=== PATIENT | male | born 2000 | race Two or more races ===

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

== ENCOUNTER 2021-04-11 15:28 | Emergency (ER) | payer OTHER, SELFPAY ==
[2021-04-11 16:16] VITALS: BP 137/77; PULSE 68; RESP 18; TEMP 36.4; O2SAT 100
--- NOTE | 2021-04-11 16:59 | ED.URI ---
HPI - URI/Sore Throat General Chief Complaint: Upper Respiratory Infection Stated Complaint: Runny Nose,Sore Throat Time Seen by Provider: 04/11/21 16:55 Source: patient, RN notes reviewed and old records reviewed Mode of arrival: ambulatory Limitations: no limitations History of Present Illness HPI Narrative: 21-year-old male presents to the [facility] with complaints of a runny nose and sore throat, states I am here for a Flu test. States that he has had a runny nose for couple of days. 2 of his buddies he hung out with a couple of days ago tested positive for the flu this morning. No treatment prior to arrival had his gallbladder removed a year ago tonsils and adenoids removed as a child. Related Data Home Medications Medication Instructions Recorded Confirmed desmopressin mg 09/27/19 famotidine 09/27/19 fluoxetine mg 09/27/19 gabapentin 09/27/19 hydroxyzine HCl 09/27/19 montelukast mg 09/27/19 topiramate 09/27/19 ziprasidone HCl 09/27/19 Allergies Allergy/AdvReac Type Severity Reaction Status Date / Time codeine Allergy Unknown Agitated Verified 09/27/19 04:32 Review of Systems Review of Systems: All systems reviewed & are unremarkable except as noted in HPI and below Constitutional: Constitutional: Reports no additional constitutional complaints, Denies chills and Denies fever(s) Eyes: Eyes: Reports no additional eye complaints, Denies change in vision and Denies photophobia ENT: Reports as per HPI Comments: Rhinorrhea Cardiovascular: Cardiovascular: Reports no additional cardiovascular complaints and Denies chest pain Respiratory: Respiratory: Reports no additional respiratory complaints, Denies chest congestion, Denies cough, Denies dyspnea and Denies wheezing Gastrointestinal: Gastrointestinal: Reports no additional gastrointestinal complaints, Denies abdominal pain, Denies diarrhea, Denies nausea and Denies vomiting Musculoskeletal: Musculoskeletal: Reports no additional musculoskeletal complaints Integumentary/Breasts: Skin/Breast: Reports system reviewed and no additional complaints, except as docu Neurologic: Reports system reviewed and no additional complaints, except as documented Psychiatric: Psychiatric: Reports no additional psychiatric complaints Allergic/Immunologic: Allergic/Immunologic: Reports no additional allergic/immunologic complaints PMFSH Past Medical History Medical History (Updated 04/11/21 @ 18:14 by Ana Nunes) GERD (gastroesophageal reflux disease) Symptomatic cholelithiasis Surgical History Surgical History (Updated 04/11/21 @ 17:08 by Ana Nunes) History of tonsillectomy Hx of cholecystectomy S/P orchiopexy Social History Social History Smoking status: Never smoker Alcohol intake: never Substance use: current Substance use type: marijuana Gender identity (if verbalized by the patient): Male Comments At the time of my signature, I reviewed and agree with the nursing past medical, surgical, social, and family history. There is no relevant family history pertinent to the patient complaint. Exam Const: General: healthy appearing, no acute distress and alert Nutritional Appearance: well nourished and obese Orientation/consciousness: patient oriented x3 Limitations: no limitations HENMT: Head: normal to inspection Ears: external ears normal, TM's normal bilaterally and EAC's normal General nose exam: Normal external nose present, Normal nasal mucous membranes and turbinates present and No nasal discharge present Face and sinus: normal facial exam Mouth: Yes Normal oral and palatal mucosa present Teeth and gingiva: dentition normal Throat: posterior oropharynx normal, uvula midline, posterior oropharynx abnormal and tonsils absent Eyes: Conjunctivae: conjunctivae normal Pupils: Equal, round and reactive pupils present Neck: Neck: normal visual inspection, no lymphadenopathy
== END 2021-04-11 17:15 | disposition home or self-care (01) ==
PROVIDERS: Emergency Provider Nurse Practitioner; PCP Family Medicine
DX: J06.9 Acute upper respiratory infection, unspecified (principal); K21.9 Gastro-esophageal reflux disease without esophagitis
CPT/HCPCS: 87081; 87804; 87880; 99213; G0463

== ENCOUNTER 2024-12-03 16:13 | Emergency (ER) | payer OTHER, SELFPAY ==
--- OUTSIDE RECORDS SUMMARY | 2024-08-11 04:09 | XMS_ITS | Continuity of Care Document ---
Author Organization [facility] Address [address] [place] [address] [place] [address] Phone Care Team Providers Care Geophysical Party Chief Name Role Phone Agus Rodriguez MD Unavailable Unavailable Allergies, Adverse Reactions, Alerts Substance Reaction Status Criticality codeine Physical aggression(severe) Active No Information Medications Medication Instructions Dosage Effective Dates (start - stop) Status Comments omeprazole 20 mg capsule,delayed release take 1 capsule by oral route every day before a meal as needed 20 MG - Active PRN for GERD albuterol sulfate HFA 90 mcg/actuation aerosol inhaler inhale 1 puff by inhalation route every 4 - 6 hours as needed as needed 1 puff - Active PRN for sob hydrocortisone 2.5 % topical cream apply by topical route 3 times every day to the affected area(s) Not Available - Active desmopressin 0.2 mg tablet take 3 tablet by oral route every day bedtime - Active Neurontin 600 mg tablet take 1 tablet by oral route every day at bedtime - Active avoid driving or operate machines Geodon 80 mg capsule take 2 capsule by oral route every day with food 160 MG - Active oxcarbazepine 300 mg tablet 1 pill am, 2 at noon and 2 at bedtime - Active Prozac 40 mg capsule take 1 capsule by oral route every day in the morning - Active Procedures Procedure Date OFFICE/OUTPATIENT VISIT, EST OFFICE/OUTPATIENT VISIT, EST OFFICE/OUTPATIENT VISIT, EST OFFICE/OUTPATIENT VISIT, EST PREV VISIT, NEW, AGE 18-39 OFFICE/OUTPATIENT VISIT, [facility] Advance Directives Directive Yes / No Effective Date File Name No Information Encounters Encounter Description Practice Location Reason(s) For Visit Diagnoses Date Provider Providers Copied on Encounter [facility], [address], [place], [place], [id number], [place] tel:[phone] [facility] No Information 5 Michael Bermudez [address], [place], [place], [address] , [place]. tel:[phone] [facility], [address], [place], [place], [address], [place] tel:[phone] [facility] No Information 5 Michael Bermudez [address], [place], [place], [address] , [place]. tel:[phone] OFFICE/OUTPA TIENT VISIT, [facility], [address], [place], [place], [address], [place] tel:[phone] [facility] hemorrhoid 1 (chief complaint) nausea1 (chief complaint) leukocytos is1 (chief complaint) proteinuri a1 (chief complaint) GERD1 (chief complaint) LeukocytosisProtein uriaHemorrhoidGastr oenteritisGERD w/o esophagitis 5 Michael Bermudez [address], [address], [place], [place], [address] , [place]. tel:[phone] OFFICE/OUTPA TIENT VISIT, [facility], [address], [place], [place], [address], [place] tel:[phone] [facility] iron1 (chief complaint) leuko (chief complaint) asthma1 (chief complaint) Iron deficiency anemiaMild intermittent asthma, uncomplicatedLeukoc ytosis Mar- 4 Michael Bermudez [address], [place], [place], [address] , [place]. tel:[phone] OFFICE/OUTPA TIENT VISIT, [facility], [address], [place], [place], [id number], tel:[phone] [facility] Medicine GERD1 (chief complaint) iron1 (chief complaint) RLS (chief complaint) nocturia1 (chief complaint) proteinuri a1 (chief complaint) Iron deficiency anemiaGERD w/o esophagitisProteinu riaRestless legs syndromeNocturnal enuresis 4 Michael Bermudez [address], [place], [place], [address] , [place]. tel:[phone] OFFICE/OUTPA TIENT VISIT, EST [facility], [address], [place], [place], [address], tel:[phone] [facility] iron1 (chief complaint) enuresis1 (chief complaint) astma1 (chief complaint) GERD1 (chief complaint) Iron deficiency anemiaPrimary insomniaRestless legs syndromeMixed irritable bowel syndromeNocturnal enuresisGERD w/o esophagitisMild intermittent asthma, uncomplicated 4 Michael Bermudez [address], [place], [place], [address] , [place]. tel:[phone] PREV VISIT, NEW, AGE 18-39 [facility], [address], [place], [place], [address], [place] tel:[phone] [facility] physical (chief complaint) Encounter for general adult medical exam w abnormal findingsIron deficiency anemiaGeneralized Anxiety DisorderNocturnal enuresisPrimary insomniaRestless legs syndromeGERD w/o esophagitisMixed irritable bowel syndrome 4 Michael Bermudez [address], [place], [place], [address] , [place]. tel:[phone] Family History Family Member Type Diagnosis Age At Onset Father Problem of meningitis young age Mother Problem breast Ca DM, HTN Brother Problem Thyroid disorder Payers Payer name Insurance type Covered libertarian ID Authoriza tion(s) [facility] CI [id number] Social History Type Description Quantity Date Captured Comments Sex Male Smoking Status No Information Chief Complaint And Reason For Visit No Information Plan Of Treatment Date Type Action Status Referral Ordered: COLONOSCOPY AND BIOPSY ordered Appointment Maik Dawson BOOKED History Of Present Illness Encounter Date Complaint History Of Prese nt Illness GERD1 Pt has mild GERD Pt only takes omeprazole very rarely and doing ok proteinuria1 Pt has history o f mild proteinuria Pt denies any urinary symptoms Pt had repeat urine test and no albumin. His urine creatine is borderline high leukocytosis1 Pt has history o f mild leukocytosis Pt had repeat CBC which was normal Pt denies any fever nausea1 Pt work up yeste rday and he felt nausea and vomited once and he missed work yesterday. Pt denies any abd pain or diarrhea. Pt needs a note for missing work. Pt denies any recurrent nausea or vomiting. hemorrhoid1 Pt notices a pro trusion from anal area for several weeks pt denies any pain or bleeding Pt denies any constipation iron1 Pt has history o f iron deficiency anemia. Pt has not been using iron for 3 months and his iron and CBC are ok. Pt denies any blood loss . leuko Pt has mild leuk ocytosis. Pt denies any feeling of illness. asthma1 Pt has mild asth ma Pt only uses albuterol 1-2 per week and sometimes none at all. Pt denies any hemoptysis, worsening sob or cough .Pt needs albuterol refilled . GERD1 Pt has recurrent GERD Pt tried to wean off omeprazole but his symptoms returned so he resumed omeprazole, which works well to control his GERD iron1 Pt has history o f iron deficiency anemia. pt stopped iron 3 months ago. his lab 3 months ago did not show any iron deficiency anemia Pt has not done repeat lab yet RLS Pt has RLS. Pt d oing well with neurontin. His iron is ok nocturia1 Pt has nocturia. Pt is on desmopressin .Pt denies any urinary symptoms proteinuria1 Pt has proteinur ia. Pt denies any urinary symptoms GERD1 Pt has very mild GERD. Pt takes omeprazole daily for several years . astma1 Pt has asthma, w hich is well controlled normally. Pt takes albuterol 2-3 times per month. Pt denies any hemoptysis enuresis1 pt has nocturnal enuresis. Pt uses DDAVP and doing ok. pt denies any urinary symptoms iron1 Pt has chronic i robyn deficiency anemia Pt denies any blood loss. Pt also has mixed IBS. Pt states that he can not afford EGD and colonoscopy at this time . physical Pt needs annual physical. pt has chronic anxiety and depression and bipolar .Pt sees psychiatrist and he is on geodon, oxcarbazepine and prozac and doing ok Pt denies any suicidal or homicidal thought pt denies any crying spells. Pt has chronic GERD Pt takes omeprazole for several years Pt denies any abd pain Pt has chronic nocturnal enuresis Pt is on DDAVP. Pt denies any urinary symptoms Pt has insomnia Pt takes hydroxyzine qhs for insomnia. Pt has chronic iron deficiency anemia Pt is on oral iron. Pt denies any abd pain. Pt denies any blood loss. Pt has chronic intermittent diarrhea and constipation. Pt denies any blood in stool Instructions Date Instruction Additional Infor radha No Information Assessments Type Assessment Date No Information
--- NOTE | ~2024-12-03 | XR_ITS ---
EXAMINATION: XR hand RT min 3V DATE: 12/03/2024 16:53 INDICATION: Injury to right hand TECHNIQUE: 3 images of the right hand were obtained COMPARISON: None. FINDINGS: Mild soft tissue swelling about the right hand. No fracture. No sclerotic or destructive bone lesion. Bone mineralization is within normal limits. IMPRESSION: 1. No fracture identified. If symptoms persist or worsen, consider a short-term follow-up study or additional imaging for further assessment. Reviewed, dictated and finalized at location A. IMPRESSION: 1. No fracture identified. If symptoms persist or worsen, consider a short-term follow-up study or additio nal imaging for further assessment.
--- NOTE | ~2024-12-03 | XR_ITS ---
EXAMINATION: XR ankle RT min 3V DATE: 12/03/2024 16:53 INDICATION: Injury to right hand and right ankle TECHNIQUE: 4 images of the right ankle were obtained. COMPARISON: None. FINDINGS: Soft tissue swelling about the right ankle. Talar dome is unremarkable. No fracture. No dislocation. IMPRESSION: 1. No fracture identified. If symptoms persist or worsen, consider a short-term follow-up study or additional imaging for further assessment. Reviewed, dictated and finalized at location A. IMPRESSION: 1. No fracture identified. If symptoms persist or worsen, consider a short-term follow-up study or additio nal imaging for further assessment.
[2024-12-03 16:16] VITALS: BP 162/112; PULSE 87; RESP 16; TEMP 36.9; O2SAT 97
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
--- OUTSIDE RECORDS SUMMARY | 2024-12-03 18:05 | XMS_ITS | Clinical Summary ---
Author Organization [facility] Address [address] [place] [address] Care Team Providers Care Business Services Manager Name Role Phone Marycarmen Morfin MD Primary Care Provider [phone] Source Comments [facility],non-owned Affiliates and Associated Physician Practices is amultiple site organization consisting of ambulatory clinics and hospital sitesin [place], [place], [place] and [place]. This disclosure is being madepursuant to the Care Everywhere program and may not contain all information available regarding this patient. Last updated 18.[facility] Allergies Active Allergy Reactions Criticality Noted Date Comments Codeine 09/06/2011 Becomes aggressive with codeine Medications * Be aware that medications may not be up to date on this document. Alwaysverify current medications with the patient. FLUoxetine (PROZAC) 40 MG capsule Take 40 mg by mouth once daily Active loratadine (CLARITIN) 10 MG tablet TAKE 1 TABLET BY MOUTH EVERY DAY 30 tablet 4 8 Active ziprasidone (GEODON) 80 MG capsule TK 1 C PO BID WC 2 9 Active Cholecalciferol 1999 unitsIndications :Vitamin D deficiency,Restl ess legs syndrome (RLS) Take 1 tablet by mouth once daily 30 tablet 2 9 Active Additional Information Patient not taking.Reported on 05/16/2019 montelukast (SINGULAIR) 10 MG tabletIndication s:Seasonal allergic rhinitis, unspecified trigger Take 1 tablet by mouth once daily 30 tablet 11 9 Active Additional Information Patient not taking.Reported on 10/04/2020 topiramate (TOPAMAX) 50 MG tablet Take 1 tablet by mouth at bedtime 30 tablet 11 9 Active desmopressin (DDAVP) 0.2 MG tabletIndication s:Enuresis Take 3 tablets by mouth at bedtime 90 tablet 0 Active desmopressin (DDAVP) 0.2 MG tablet Take 3 tablets by mouth at bedtime 90 tablet 11 0 Active promethazine (PHENERGAN) 25 MG tablet 0 Active Cholecalciferol 1.25 MG (34608 UT) TK 1 C PO ONCE WEEKLY 4 capsule 0 Active Additional Information Patient not taking.Reported on 10/04/2020 ferrous sulfate 325 (65 FE) MG tablet Take 1 tablet by mouth daily with food 30 tablet 4 0 Active hydrOXYzine hcl (ATARAX) 25 MG tablet TAKE 1 TABLET BY MOUTH AT BEDTIME 30 tablet 11 0 Active albuterol HFA (PROAIR HFA) 108 (90 Base) MCG/ACT inhaler Inhale 2 (two) puffs by mouth every 4 hours 1 Inhaler 1 Active pantoprazole EC (PROTONIX) 20 MG tablet TAKE 1 TABLET BY MOUTH TWICE DAILY 180 tablet 1 1 Active gabapentin (NEURONTIN) 600 MG tablet Take 1 (one) tablet by mouth at bedtime 30 tablet 1 Active Active Problems Problem Noted Date Diagnosed Date BMI (body mass index), pediatric, > 99% for age 1002/09/2017 Decreased linear growth velocity 06/12/2016 Overview (01/02/2017): Age 8-12 yr, linear growth measurements ~ 25th percentile isopleth; age 15 yr, height measurement ~ 5th percentile isoplth; age 16 yr, height < 5th percentile isopleth. Feb 15, 2016 - bone age ([place], [place]): ~ 16 yr at chronological age 14-11/12 yr - report; predicted adult height ~ 166 cm (~ 5 feet 5 in) . Assessment & Plan (01/02/2017 12:46 PM CDT): Good interval linear growth (~ 2 inches in six months); predicted adult height in keeping with parental adult heights 1. Expectant observation. 2. Dietary/exercise counseling provded 3. Reviewed signs/symptoms/risks of developing diabetes mellitus with continued weight gain. 4. Return appointment in nine months Assessment & Plan (06/12/2016 5:11 PM SPEECH CLINICIAN): Declining linear growth rate, bone age commensurate with chronological age, suspect nearing adult height. Rule out growth hormone deficiency vs late onset 21- hydroxylase deficiency, vs benign, familial short stature. 1. Obtain CD copy of bone age radiograph from [place], [place] for review (release of information sent). 2. Screening serum IGF-2, 17-OHP, and hemoglobin A1c 3. Expectant observation. 4. Return appointment in six months. Acanthosis nigricans 06/12/2016 Overview (06/12/2016): Morbid obesity, acanthosis nigricans, + family history of diabetes mellitus. Assessment & Plan (01/02/2017 12:48 PM CDT): At risk of developing diabetes mellitus (~ type 2) 1. Counseled: importance of diet/exercise to manage weight; signs/symptoms of diabetes mellitus. 2. Annual hemoglobin A1c level. Assessment & Plan (06/12/2016 5:25 PM SPEECH CLINICIAN): At risk of developing diabetes mellitus 1. Counseled: importance of diet/exercise to manage weight; signs/symptoms of diabetes mellitus. 2. Obtain hemoglobin A1c level following today's office appointment. Enuresis 06/08/2015 Assessment & Plan (01/12/2020 11:23 AM CDT): - nocturnal enuresis and morbid obesity. Xavi continues to have episodes of nocturnal enuresis when he stops DDAVP. This problem has a strong family history with 26 yo brother still requiring DDAVP at night. Grossly normal/baseline exam for patient. Continued refills of DDAVP and follow up with adult urology or Adult PCP for continued therapy. Plan: Void every 2 hours, double void; girls should sit with their legs spread in wide V-shape, and with their feet on the floor or a stool. She may also straddle the toilet backwards. Urinary and bowel limitations and recommendations Continue DDAVP Testicular asymmetry 06/08/2015 Elevated blood pressure reading 10/01/2012 Oppositional defiant disorder 11/25/2010 Overview (07/10/2015): 2015 IMO Updt Asthma, intermittent 11/25/2010 Bipolar disorder 09/20/2010 Restless legs syndrome (RLS) 12/07/2009 Obstructive sleep apnea 12/07/2009 Overview (01/14/2015): Resolved Problems Problem Noted Date Diagnosed Date Resolved Date Constipation 06/08/2015 07/06/2015 Asthma, intermittent 12/15/2011 013 Undescended left testicle 09/26/2011 Overview (02/21/2015): Asthma 12/07/2009 11/25/2010 Immunizations Immunization Administration Dates Next Due INFLUENZA VACCINE, TRIV. (AF LURIA, FLUZONE TRIVALENT; 6MO+) (IIV3) 02/12/2012,01/10/2011 DTaP VACCINE IM (6wk-6yrs) 10/31/2005,,2001,08/13,2001 FLU VACCINE TRI IIV3 SPLIT P F IM (FLUVIRIN) 01/07/2013,05/24/2009 HEP A PEDS 2 DOSE 11/18/2008,10/22/2006 HEP B VACCINE, PED/ADOL 01/14/2002,2001, HIB BOOSTER 10/11/2002, 2,2001,06/07 Human Papilloma Virus Nineva lent Vaccine 02/07/2016 Human Papilloma Virus Isabella valent Vaccine 02/05/2015,09/30/2012 INFLUENZA VACCINE 02/26/2008 INFLUENZA VACCINE, QUADR. (F LUZONE; FLULAVAL; FLUARIX; AFLURIA QUADRIVALENT; 6MO+), 0.5 ML (IIV4) 01/08/2020,03/11/2018,02/08/2017,02/06,01/07/2015 MENINGOCOCCAL ACWY (MCV4P) VAC IM 03/11/2018, MMR 10/31/2005,04/07/2002 PNEUMOCOCCAL CONJ, PEDS 04/07/2002,10/14,2001,06/07 POLIO IPV 10/31/2005, 3,2001,06/07 PPD 10/22/2006,04/07/2002 TDAP (7yrs+) 09/30/2012 VARICELLA 10/22/2006,07/12/2002 Family History Medical History Relation Name Comments Nocturnal enuresis Brother Diabetes Maternal Grandmother Diabetes Mother Diabetes Paternal Grandmother Short stature Paternal Grandmother height 4 feet 9 inches Relation Name Status Comments Brother Maternal Grandmother Mother Paternal Grandmother Social History Tobacco Use Types Packs/Day Years Used Date Smoking Tobacco: Passive Smo ke Exposure - Never Smoker Smokeless Tobacco: Never Alcohol Use Standard Drinks/Week Comments No 0 (1 standard drink = 0.6 oz pur e alcohol) Sex and Gender Information Value Date Recorded Sex Assigned at Not on file Legal Sex Male 5:40 AM SPEECH CLINICIAN Gender Identity Not on file Sexual Orientation Not on file Last Filed Vital Signs Vital Sign Reading Time Taken Comments Blood Pressure 126/69 05/28/2020 1:13 PM SPEECH CLINICIAN Pulse 72 05/28/2020 1:13 PM SPEECH CLINICIAN Temperature 36.6 C (97.9 F) 10/04/2020 3:24 PM CDT Respiratory Rate 20 10/23/2018 2:47 PM CDT Oxygen Saturation 98% 02/11/2020 2:50 PM CDT Inhaled Oxygen Concentration - - Weight 128.6 kg (283 lb 9.6 oz) 10/04/2020 3:24 PM CDT Height 166.4 cm (5' 5.5) 05/28/2020 1:13 PM SPEECH CLINICIAN Body Mass Index 46.48 05/28/2020 1:13 PM SPEECH CLINICIAN Plan of Treatment Health Maintenance Due Date Last Done Comments HIV SCREENING 2016 MENINGOCOCCAL (Group B) VACC INE SHARED DECISION-MAKING (1 of 2 - Standard) 2017 HEPATITIS C SCREENING 04/02/2019 DTAP/TDAP/TD VACCINES (7 - T d or Tdap) 09/30/2022 09/30/2012, 10/31/2005, 10/11/2002, Additional history exists COVID-19 VACCINE (2023-2 5 season) 2023 INFLUENZA VACCINE (#1) 2024 , 03/11/2018, 02/08/2017, Additional history exists ZOSTER VACCINE (1 of 2) 2051 HEPATITIS B VACCINE Completed 01/14/2002, 2001, 2001 PNEUMOCOCCAL VACCINE Completed 04/07/2002, 2001, 2001, Additional history exists HIB VACCINE Completed 10/11/2002, 04/2001, 2001, Additional history exists HPV VACCINE Completed 02/07/2016, 01/15, 09/30/2012 MENINGOCOCCAL GROUPS A/C/Y/W VACCINE Completed 03/11/2018, 09/30/2012 Goals Goal Patient Goal Type Associated Problems Recent Progress Patient-Stated? Author Exercise 3X per week (30 min per time) Exercise On track( 021 1:25 PM SPEECH CLINICIAN) Susu Persaud RN Note: Caring for Your Overweight Child Get Moving: It is recommended that children and teens get physical activity for at least 1 hour per day on most (or better yet, all) days of the week. That may sound like a lot, especially if your child is not getting any physical activity now. But physical activity means more than exercise. It can mean playing games in the backyard, or washing the car. It can mean picking up leaves, or walking the dog. Add the healthy habit of physical activity to your family s schedule. When children take off weight through dieting alone, 80 percent of the loss is from fatty tissue and 20 percent is from muscle. Adding weight-resistance training to an exercise routine preserves the muscle tissue. Virtually every ounce dropped comes from fat. Once an adolescent meets his goal, regular exercise is essential for maintaining the desired weight. Where can I go for more information? [employer] ( ) www.aap.org HealthyChildren.org www.healthychildren.org U.S. Department of Health and Human Services www.hhs.gov Website and free downloadable teagan for smartphones: http://www.Snowman/ Use safety retraint in car Lifestyle On track( 021 1:13 PM SPEECH CLINICIAN) Susu Persaud RN Insurance [facility] Care Teams Business Services Manager Relationship Specialty Start Date End Date Marycarmen Morfin MD PCP - General Pediatrics 07/22/13
--- OUTSIDE RECORDS SUMMARY | 2024-12-03 18:05 | XMS_ITS | Clinical Summary ---
Author Organization [facility] Medical Office Building [address] Address [address] [place] [address] Care Team Providers Care Bridge Maintenance Worker Name Role Phone Marycarmen Morfin MD Primary Care Provider [phone] Allergies Active Allergy Reactions Criticality Noted Date Comments Codeine Other (See comments) Low 09/06/2011 Becomes aggressive with codeine Medications cholecalciferol (VITAMIN D-3) 50,000 unit capsule TK 1 C PO ONCE WEEKLY 0 Active desmopressin (DDAVP) 0.2 mg tablet Take 0.6 mg by mouth nightly 0 Active FLUoxetine (PROzac) 40 mg capsule Take 40 mg by mouth daily Active gabapentin (NEURONTIN) 400 mg capsule TAKE 1 CAPSULE BY MOUTH AT BEDTIME 0 Active hydrOXYzine (ATARAX) 25 mg tablet Take 25 mg by mouth nightly 9 Active montelukast (SINGULAIR) 10 mg tablet Take 10 mg by mouth daily [address] (PROTONIX) 40 mg EC tablet TK 1 T PO D 0 Active topiramate (TOPAMAX) 50 mg tablet Take 50 mg by mouth nightly 9 Active ziprasidone (GEODON) 80 mg capsule Take 160 mg by mouth nightly 9 Active promethazine (PHENERGAN) 25 mg tablet Take 1 tablet (25 mg total) by mouth every 6 (six) hours as needed for nausea or vomiting 30 tablet 10/19/202 0 Active dicyclomine (BENTYL) 20 mg tablet Take 20 mg by mouth every 6 (six) hours Active naproxen (ALEVE) 220 mg tablet Take 220 mg by mouth 2 (two) times a day with meals Active ferrous sulfate 325 mg (65 mg of elemental iron) tabletIndicatio ns:Iron Deficiency Anemia Take 65 mg of elemental iron by mouth daily with breakfast Active albuterol HFA (PROVENTIL HFA,VENTOLIN HFA,PROAIR HFA) 90 mcg/actuation inhaler Inhale 2 puffs every 6 (six) hours as needed for wheezing Active Active Problems Problem Noted Date Diagnosed Date Symptomatic cholelithiasis 02/03/2020 Overview (02/03/2020): Added automatically from request for surgery [id number] Assessment & Plan (03/09/2020 12:29 PM GLUE PLANT OPERATOR): Diet as tolerated. Okay to return to work with light duty. No heavy lifting greater than 20 lb for 4 weeks. No submerging incisions for 4 weeks. Please call for any further questions or concerns. Nausea and vomiting 12/30/2019 Overview (12/30/2019): Added automatically from request for surgery [id number] Assessment & Plan (02/02/2020 1:52 PM CDT): Occurs almost daily. Pt says he will be fine for a little while and then suddenly have a few days or N/V daily. Last time he vomited was this morning. Denies blood or coffee ground-like emesis. He is on pantoprazole daily and EGD overall unremarkable. Assessment & Plan (12/30/2019 2:16 PM CDT): Pt is having intermittent N/V. He will have issues with vomiting after almost every meal for a couple of weeks, then suddenly not have any issues for a few weeks. He was placed on pantoprazole by PCP which apparently helps somewhat. Last emesis was today. He denies ever having bloody or coffee-ground like emesis. Per mother, he did have US at [place] that showed gallstones. Unfortunately, I do not have access to this report as it was done at [facility]. Will have patient fill out release of information and obtain a copy. Continue pantoprazole daily. We discussed following bland, low fat diet for now. Will schedule EGD. GERD (gastroesophageal reflux disease) 0 Assessment & Plan (02/02/2020 1:56 PM CDT): Well controlled on pantoprazole and EGD showed mild reflux esophagitis. Continue this medication. Assessment & Plan (12/30/2019 2:17 PM CDT): Pt on pantoprazole and says he still has issues with heartburn often. He says all last week, he had severe heartburn daily. Instructed to make sure to take pantoprazole daily and first thing in the morning. We discussed GERD diet and importance of following this. He was given handout on this diet. Will schedule EGD. BMI 45.0-49.9, adult 12/30/2019 Class 3 severe obesity due t o excess calories without serious comorbidity with body mass index (BMI) of 50.0 to 59.9 in adult 12/30/2019 Assessment & Plan (12/30/2019 2:21 PM CDT): Briefly discussed importance of weight loss. Bronchial asthma 01/11/2009 Resolved Problems Problem Noted Date Diagnosed Date Resolved Date Right upper quadrant abdominal pain 12/30/2019 03/09/2020 Overview (12/30/2019): Added automatically from request for surgery [id number] Assessment & Plan (02/03/2020 9:00 AM CDT): Patient with classic symptoms for gallbladder disease, right upper quadrant abdominal pain associated with certain p.o. intake and with findings of gallstones. We will set him up for cholecystectomy. Risks and benefits have been explained to the patient to include bleeding, infection and post cholecystectomy diarrhea. COVID -19 testing will be ordered and consent to be signed. All questions have been answered. Assessment & Plan (02/02/2020 1:57 PM CDT): Pt c/o intermittent RUQ pain that is sharp. He does noticed this sometimes occurs shortly after meals, but not always. Also has N/V associated with the pain. He says his BM's are normal. He had EGD to rule out gastric cause for pain. This was unremarkable. He had abdominal US at [facility] which showed multiple gallstones. He was present with mother today at appt. They were instructed to go to ER if symptoms become worse or develops fevers/chills. They verbalized understanding. Will refer to surgery for possible cholecystectomy. Assessment & Plan (12/30/2019 2:20 PM CDT): Pt is c/o intermittent epigastric abdominal pain and sometimes into RUQ region. He did have US that showed gallstones but this was done at [facility] and do not have access to this report. Pt says he intermittently has N/V. When he is having issues, the vomiting usually occurs shortly after eating. He says pain only occurs occasionally and doesn't seem to be directly correlated with food or BM's. He says he also doesn't always have this pain with N/V. Will obtain copy of US from [facility] and f/u after EGD is done. Surgical History Surgery Date Site/Laterality Comments TONSILECTOMY, ADENOIDECTOMY, BILATERAL MYRINGOTOMY AND TUBES TESTICLE SURGERY Medical History Medical History Date Comments GERD (gastroesophageal reflux disease) Asthma Sleep apnea Bipolar disorder OCD (obsessive compulsive disorder) Social History Tobacco Use Types Packs/Day Years Used Date Smoking Tobacco: Never Sex and Gender Information Value Date Recorded Sex Assigned at Not on file Legal Sex Male 1:13 AM GLUE PLANT OPERATOR Gender Identity Not on file Sexual Orientation Not on file Obstetrics History Last Filed Vital Signs Vital Sign Reading Time Taken Comments Blood Pressure 116/78 03/09/2020 12:11 PM GLUE PLANT OPERATOR Pulse 87 03/09/2020 12:11 PM GLUE PLANT OPERATOR Temperature 35.8 C (96.4 F) 03/09/2020 12:11 PM GLUE PLANT OPERATOR Respiratory Rate 18 03/01/2020 2:12 PM GLUE PLANT OPERATOR Oxygen Saturation 97% 03/09/2020 12:11 PM GLUE PLANT OPERATOR Inhaled Oxygen Concentration - - Weight 129.7 kg (286 lb) 03/09/2020 12:11 PM GLUE PLANT OPERATOR Height 162.6 cm (5' 4) 03/09/2020 12:11 PM GLUE PLANT OPERATOR Body Mass Index 49.09 03/09/2020 12:11 PM GLUE PLANT OPERATOR Plan of Treatment Not on file Insurance [facility] Advance Directives For more information, please contact: [phone] * Full Code (Latest Code Status on File) Date Activated Date Inactivated Comments 01/21/2020 1:02 PM 01/21/2020 6:25 PM Care Teams Bridge Maintenance Worker Relationship Specialty Start Date End Date Marycarmen Morfin MD PCP - General Pediatrics 02/02/20
== END 2024-12-03 18:30 | disposition home or self-care (01) ==
LOC: ANHED 18:04
PROVIDERS: Emergency Provider Family Medicine; PCP Family Medicine
DX: S93.401A Sprain of unspecified ligament of right ankle, initial encounter (principal); S66.911A Strain of unspecified muscle, fascia and tendon at wrist and hand level, right hand, initial encounter; K21.9 Gastro-esophageal reflux disease without esophagitis; Z90.49 Acquired absence of other specified parts of digestive tract; V43.52XA Car driver injured in collision with other type car in traffic accident, initial encounter
CPT/HCPCS: 73130; 73610; 99284

== ENCOUNTER 2024-12-30 11:53 | Outpatient (CLI) | payer OTHER, SELFPAY ==
--- NOTE | ~2024-12-30 | XR_ITS ---
EXAM/ PROCEDURE: XR hand RT 2V - 12/30/2024 12:28 CDT HISTORY: 24 years old Male with Pain in R hand COMPARISON: None available TECHNIQUE: Two view(s) FINDINGS/ IMPRESSION: There are no fractures or dislocations.Joint spaces are within normal limits. Reviewed, dictated and finalized at location N.
== END 2024-12-30 11:54 | disposition home or self-care (01) ==
PROVIDERS: PCP Emergency Medicine; Visit Provider Emergency Medicine
DX: M79.641 Pain in right hand (principal)
CPT/HCPCS: 73120

== ENCOUNTER 2025-02-19 15:04 | Outpatient (CLI) | payer OTHER, SELFPAY ==
--- NOTE | ~2025-02-19 | XR_ITS ---
EXAMINATION: XR chest 2V, 02/19/2025 15:10 OVEN STRIPPER HISTORY: PNEUMONIA COMPARISON: No comparisons available. Technique: 2 views obtained. Findings: The lungs are clear, no effusion. No pneumothorax. Heart is normal size. Mediastinal and hilar contours are within normal limits. Bony thorax no acute abnormality. Impression: No acute cardiopulmonary abnormality. Reviewed, dictated and finalized at location P. STRIPPER Impression: No acute cardiopulmonary abnormality.
== END 2025-02-19 15:05 | disposition home or self-care (01) ==
LOC: MICIMG 15:07
PROVIDERS: PCP Emergency Medicine; Visit Provider Emergency Medicine
DX: J18.9 Pneumonia, unspecified organism (principal)
CPT/HCPCS: 71046